=== PATIENT | male | born 1950 | race American Indian/Alaskan Native ===

== ENCOUNTER → 2016-07-20 | Outpatient (CLI) | payer MEDICARE, OTHER ==
[~2016-07-20] MED LIST: ASPI-515 PO; BENA10TA2 PO; DEXA1TAB5 PO; FARXIGA PO; GLYBURIDE PO; LEVO125T5 PO; OMNIPAQUE 350 MG/ML, 100ML BOTTLE ONE; PRED10TA PO; PRED5TAB19 PO; SIMV5TAB PO; SITA100T PO
== END | disposition home or self-care (01) ==
LOC: CFH 12:44
PROVIDERS: ATTEND Internal Medicine
DX: C83.30 Diffuse large B-cell lymphoma, unspecified site (principal); J98.11 Atelectasis; N32.89 Other specified disorders of bladder; Z77.090 Contact with and (suspected) exposure to asbestos
CPT/HCPCS: 71260; 74177; Q9967